=== PATIENT | male | born 1965 | race African-American/Black ===

== ENCOUNTER 2020-09-01 15:06 | Inpatient (IN) | payer MEDICAID ==
[~2020-09-01] VITALS: Ht 170.2 cm; Wt 83.5 kg
--- NOTE | 2020-09-01 15:15 | NUR ---
ABDOMINAL XRAY OBTAINED. PATIENT ROLLED AND BACK/SACRUM/BUTTOCKS ASSESSED FOR PRESSURE INJURY-SKIN INTACT.
[2020-09-01 15:34] LABS: BASOPHILS 0.1 % (0-2); EOSINOPHILS 0.5 % (0-7); HEMATOCRIT 38.9 % (42.0-54.0); IMMATURE GRANULOCYTES 0.3 % (0-5); LYMPHOCYTE ABS# 1.44 10x3/uL (1.32-3.57); LYMPHOCYTES 15.7 % (15-50); MCH 25.5 pg (26.0-34.0); MCHC 30.8 g/dL (31.0-37.0); MCV 82.6 fL (80.0-100.0); MEAN PLATELET VOLUME 9.8 fL (7.4-10.4); MONOCYTES 5.9 % (2-11); NEUTROPHIL ABS# 7.09 10x3/uL (1.78-5.38); NEUTROPHILS 77.5 % (40-80); PLATELET COUNT 312 10x3/uL (130-400); RBC 4.71 10x6/uL (4.20-6.10); RDW 14.6 % (11.5-14.5); WBC 9.2 10x3/uL (4.8-10.8)
[2020-09-01 15:52] LABS: CALC OSMOLALITY 276 mosm/kg (275-300); CALCIUM 9.5 mg/dL (8.5-10.1); CARBON DIOXIDE 32.2 mmol/L (21.0-32.0); CHLORIDE - SERUM 105 mmol/L (98-107); GLUCOSE 121 mg/dL (74-106); POTASSIUM - SERUM 4.2 mmol/L (3.5-5.1); SODIUM 139 mmol/L (136-145); UREA NITROGEN 8 mg/dL (7-18); eGFR NON AFRICAN AMERICAN 82 mL/min (90-120)
[2020-09-01 16:01] LABS: ALBUMIN 3.1 g/dL (3.4-5.0); ALKALINE PHOSPHATASE 53 U/L (30-120); ALT (SGPT) 33 U/L (10-68); AMYLASE - SERUM 79 U/L (25-115); BILIRUBIN - TOTAL 0.31 mg/dL (0.2-1.3); LIPASE 332 U/L (73-393); PROTEIN - SERUM 8.6 g/dL (6.4-8.2); TROPONIN-I < 0.017 ng/mL (0.000-0.060)
--- NOTE | 2020-09-01 16:37 | NUR ---
PEG TUBE TO LOW INTERMITTENT SUCTION. SMALL AMOUNT OF MILKY FLUID RETURNED INITIALLY. TRACH SUCTIONED FOR THICK MUCOUS. STRONG COUGH REFLEX. STAT LOCK TO INDWELLING CATHETER AND CATHETER CLAMPED FOR SPECIMEN COLLECTION.
--- NOTE | 2020-09-01 17:45 | NUR ---
DR ELIZABETH AT BEDSIDE TO MANNUALLY REDUCE LEFT INGUINAL HERNIA. LEFT GROIN SMALLER AND SOFTER FOLLOWING.
[2020-09-01 17:54] LABS: NITRITE POSITIVE (NEGATIVE)
[2020-09-01 17:55] LABS: BILIRUBIN NEGATIVE (NEGATIVE); KETONE NEGATIVE (NEGATIVE); UROBILINOGEN NORMAL mg/dL (< 2)
[2020-09-01 17:56] LABS: BACTERIA MANY HPF (NONE SEEN); WHITE CELLS - URINE 0-5 HPF (0-1)
--- NOTE | 2020-09-01 17:58 | NUR ---
MORPHINE 10MG SLOW IVP ORDERED FOR POST REDUCTION DISCOMFORT.
--- NOTE | 2020-09-01 19:00 | NUR ---
DR. MCQUEEN HERE. REPORT ON CONDITION GIVEN. [facility] CONTACTED TO PROVIDE A COMPLETE MAR FOR RECONCILIATION. CURRENT COPY IS INCOMPLETE FOR DOSAGE FREQUENCIES.
--- NOTE | 2020-09-01 19:33 | NUR ---
REPORT CALLED TO [facility], MED[facility]G [facility].
[2020-09-01 22:20] VITALS: BP 155/104
[2020-09-02 00:39] VITALS: BP 151/108
[2020-09-02 01:05] VITALS: BMI 28.9
--- NOTE | 2020-09-02 02:18 | NUR ---
MD MCQUEEN REQUEST FAITH CHANGE ON PT AND MED RECON. HOSPITAL UNIT CONTACTED AND MED INFO REQUEST NURSE WAS PRN AND WASN'T SURE ABOUT SOME OF THE DOSAGE WILL INFORM NURSE IN THE AM TO VERIFY. MD BREWER CONTACTED VERIFY GOLYTELY TO BE GIVEN IN A PERIOD OF 2-4 HOURS AROUND 250ML TO PT UNTIL BOWEL MOVEMENT OCCURS PT NOT TO BE GIVEN LACTULOSE OR SENNA AT THE MOMENT.
[2020-09-02 04:49] VITALS: BP 147/103
[2020-09-02] MEDS ORDERED: POTASSIUM CHLORIDE PEG (06:07)
[2020-09-02] MEDS ORDERED: CHRONULAC30 ML PEG (06:08)
[2020-09-02] MEDS ORDERED: LANTUS INS100 UNITS/ SC (06:11)
[2020-09-02] MEDS ORDERED: LISINOPRIL20 MG PEG (06:13)
[2020-09-02] MEDS ORDERED: PROVENTIL/2.5 MG/3 M INH (06:19)
[2020-09-02] MEDS ORDERED: NOVOLOG100 UNIT/1 SC (06:21)
[2020-09-02] MEDS ORDERED: CENTRUM LIQUID PEG (06:22)
[2020-09-02] MEDS ORDERED: PROTEINEX PEG (06:23)
[2020-09-02] MEDS ORDERED: LOVENOX40 MG/0.4 SC (06:24)
[2020-09-02] MEDS ORDERED: SENNA LAXATIVE8.6 MG PEG (06:24)
[2020-09-02] MEDS ORDERED: HYDRALAZINE HCL25 MG PEG (06:25)
[2020-09-02] MEDS ORDERED: REGLAN10 MG PEG (06:27)
[2020-09-02] MEDS ORDERED: SCOPOLAMINE1 EACH TRANSDERM (06:28)
[2020-09-02] MEDS ORDERED: PROBIOTIC250 MG PEG (06:28)
[2020-09-02] MEDS ORDERED: BACLOFEN20 M1 PEG (06:29)
[2020-09-02] MEDS ORDERED: AIRDUO RESPI (06:43)
[2020-09-02] MEDS ORDERED: CLONIDINE HCL0.3 MG TRANSDERM (06:54)
[2020-09-02] MEDS ORDERED: GENTAK3.5 GM EACH EYE (06:56)
[2020-09-02] MEDS ORDERED: PEPCID AC20 MG PEG (06:57)
[2020-09-02 06:59] LABS: BASOPHILS 0.1 % (0-2); EOSINOPHILS 1.3 % (0-7); HEMATOCRIT 37.5 % (42.0-54.0); HEMOGLOBIN 11.6 g/dL (13.5-17.5); IMMATURE GRANULOCYTES 0.1 % (0-5); LYMPHOCYTE ABS# 1.57 10x3/uL (1.32-3.57); LYMPHOCYTES 22.1 % (15-50); MCH 25.4 pg (26.0-34.0); MCHC 30.9 g/dL (31.0-37.0); MCV 82.1 fL (80.0-100.0); MEAN PLATELET VOLUME 10.8 fL (7.4-10.4); MONOCYTES 6.9 % (2-11); NEUTROPHIL ABS# 4.92 10x3/uL (1.78-5.38); NEUTROPHILS 69.5 % (40-80); PLATELET COUNT 352 10x3/uL (130-400); RBC 4.57 10x6/uL (4.20-6.10); RDW 14.8 % (11.5-14.5); WBC 7.1 10x3/uL (4.8-10.8)
[2020-09-02] MEDS ORDERED: CORTISPORIN OIN15 GM TOPICAL (07:01)
[2020-09-02] MEDS ORDERED: FUROSEMIDE40 MG PEG (07:02)
[2020-09-02 07:16] LABS: ALKALINE PHOSPHATASE 51 U/L (30-120); ALT (SGPT) 31 U/L (10-68); BILIRUBIN - TOTAL 0.33 mg/dL (0.2-1.3); CALC OSMOLALITY 276 mosm/kg (275-300); CALCIUM 9.2 mg/dL (8.5-10.1); CARBON DIOXIDE 27.7 mmol/L (21.0-32.0); CHLORIDE - SERUM 106 mmol/L (98-107); GLUCOSE 126 mg/dL (74-106); POTASSIUM - SERUM 4.3 mmol/L (3.5-5.1); PROTEIN - SERUM 8.1 g/dL (6.4-8.2); SODIUM 138 mmol/L (136-145); UREA NITROGEN 10 mg/dL (7-18); eGFR NON AFRICAN AMERICAN 82 mL/min (90-120)
--- NOTE | 2020-09-02 07:30 | NUR ---
RESTING QUIETLY IN BED. NON RESPONSIVE TO VERBAL OR TACTILE SENSATION AT THIS TIME. LUNGS HAVE CRACKLES AND WHEEZES THROUGHOUT LUNG RUIZ. NO COUGH NOTED. SKIN IS INTACT WITHOUT REDNESS. PICC TO RIGHT UPPER ARM IS PATENT WTIHOUT REDNESS AT INSERTION SITE. PEG TUBE IS PATENT. TRACH COLLAR IN PLACE. FAITH PATENT WITH VERY LIGHT TEA COLORED URINE. NO NEEDS NOTED.
[2020-09-02 08:09] VITALS: BP 140/100
[2020-09-02 09:10] VITALS: Ht 170.2 cm; Wt 83.5 kg
--- NOTE | 2020-09-02 10:00 | NUR ---
SUCTIONED AT THIS TIME. SOME THICK GRAYISH SPUTUM RETURNED. REPOSITIONED IN BED FOR COMFORT.
--- NOTE | 2020-09-02 11:00 | NUR ---
250cc GOLYTLY GIVEN VIA PEG. RESPIRATORY CALLED TO ROOM. DEEP SUCTIONED VIA RT. THICH GREENISH SPUTUM RETURNED. REPOSITIONED IN BED FOR COMFORT.
[2020-09-02 12:04] VITALS: BP 149/115
--- NOTE | 2020-09-02 13:00 | NUR ---
ABDOMEN IS EXTREMELY TIGHT, LIKE A BASKETBALL, GOLYTLY HELD AT THIS TIME. DR. BREWER NOTIFIED OF SAME. WILL MONITOR. PASSING GAS AT THIS TIME.
[2020-09-02 17:29] VITALS: BP 190/115
--- NOTE | 2020-09-02 18:03 | NUR ---
GIVEN 10MG APRESOLINE SLOW IVP FOR BP 180/115. WILL MONITOR.
--- NOTE | 2020-09-02 19:21 | NUR ---
CLEANED PATIENT UP WITH PERSONNEL REPRESENTATIVE AFTER PATIENT VOMITED. COMPLETE LINEN CHANGE. GUARD AT BEDSIDE. BED IN LOWEST POSITION AND CALL LIGHT IN REACH. ENCOURAGED PATIENT AND GUARD TO CALL WITH NEEDS.
--- NOTE | 2020-09-02 19:22 | NUR ---
HAD EMESIS AT THIS TIME. SKIN CARE PER STAFF. NO CHANGES NOTED.
--- NOTE | 2020-09-02 20:09 | NUR ---
ADMINISTERED MEDS PER ORDERS. PATIENT MARIA DOLORES WELL. ENCOURAGED TO CALL WITH NEEDS.
[2020-09-02 20:33] VITALS: BP 144/90
[2020-09-03 00:46] VITALS: BP 165/100
[2020-09-03 05:08] VITALS: BP 135/81
--- NOTE | 2020-09-03 05:15 | NUR ---
PAGED DR. MCQUEEN IN REGARDS TO 102.6 TEMP
[2020-09-03 06:40] LABS: BASOPHILS 0.1 % (0-2); EOSINOPHILS 0.2 % (0-7); HEMATOCRIT 34.1 % (42.0-54.0); HEMOGLOBIN 10.7 g/dL (13.5-17.5); IMMATURE GRANULOCYTES 0.3 % (0-5); LYMPHOCYTE ABS# 1.66 10x3/uL (1.32-3.57); LYMPHOCYTES 15.6 % (15-50); MCH 25.3 pg (26.0-34.0); MCHC 31.4 g/dL (31.0-37.0); MCV 80.6 fL (80.0-100.0); MEAN PLATELET VOLUME 9.4 fL (7.4-10.4); MONOCYTES 5.3 % (2-11); NEUTROPHIL ABS# 8.38 10x3/uL (1.78-5.38); NEUTROPHILS 78.5 % (40-80); RBC 4.23 10x6/uL (4.20-6.10); RDW 14.6 % (11.5-14.5)
[2020-09-03 06:42] LABS: PLATELET COUNT 257 10x3/uL (130-400); WBC 10.7 10x3/uL (4.8-10.8)
[2020-09-03 07:04] LABS: ANION GAP 11.1 mmol/L (8-16); CALCIUM 8.7 mg/dL (8.5-10.1); CARBON DIOXIDE 25.8 mmol/L (21.0-32.0); CREATININE - SERUM 1.1 mg/dL (0.6-1.3); POTASSIUM - SERUM 3.9 mmol/L (3.5-5.1)
--- NOTE | 2020-09-03 07:49 | NUR ---
PATIENT IS NON VERBAL. COUGHING UP SOME GRAYISH SPUTUM. SKIN CARE PER STAFF. LUNGS ARE DIMINISHED THROUGHOUT. SKIN IS INTACT WITHOUT REDNESS EXCEPT SMALL REDDENED AREA ON COCCYX. WILL MONITOR. MIDLINE TO RIGHT UPPER ARM IS PATENT WITHOUT REDNESS AT INSERTION SITE. FAITH PATENT WITH TEA COLORED URINE. NO NEEDS NOTED.
--- NOTE | 2020-09-03 09:00 | NUR ---
DR. MCQUEEN NOTIFIED OF ELEVATED TEMP. NEW ORDERS RECEIVED.
[2020-09-03 09:04] VITALS: BP 135/74
--- NOTE | 2020-09-03 09:30 | NUR ---
SUCTIONED AT THIS TIME. LARGE AMOUNT OF GREYISH SPUTUM AROUND TRACH. SKIN CARE PER STAFF.
--- NOTE | 2020-09-03 10:30 | NUR ---
TYLENOL SUPPOSITORY PLACE. SMALL AMOUNT OF STOO, LOOSE WATERY, SKIN CARE PER STAFF.
--- NOTE | 2020-09-03 12:00 | NUR ---
TEMP DOWN SLIGHTLY. WILL CONTINUE TO MONITOR.
[2020-09-03 12:06] VITALS: BP 120/81
--- NOTE | 2020-09-03 15:00 | NUR ---
SUCTIONED PER STAFF. INCONTINENT OF SMALL AMOUNT OF LOOSE WATERY STOOL. SKIN CARE PER STAFF.
[2020-09-03 16:48] VITALS: BP 142/90
--- NOTE | 2020-09-03 18:29 | NUR ---
NO CHANGES AT THIS TIME. NO NEEDS NOTED. HOB UP 45 DEGREES.
--- NOTE | 2020-09-03 19:31 | NUR ---
PATIENT RESTING IN BED WITH NO S/S OF DISTRESS. GUARD AT BEDSIDE AND DENIES NEEDS AT THIS TIME. BED IN LOWEST POSITION AND CALL LIGHT IN REACH.
--- NOTE | 2020-09-03 20:15 | NUR ---
ADMINISTERED MEDS PER ORDERS. PATIENT MARIA DOLORES WELL. ENCOURAGED TO CALL WITH NEEDS.
[2020-09-03 20:44] VITALS: BP 152/97
[2020-09-04] VITALS (7 sets, daily range): BP systolic 127–179; BP diastolic 47–105
--- NOTE | 2020-09-04 12:16 | NUR ---
Nutrition follow-up: Pt continues NPO due to SBO. PEG tube to suction with little to no output Labs reviewed Wt: 184# Recommend starting ProcalAmine PPN @ 100 ml/hr if enteral feeds unable to begin within [address]N follow-up: 09/06/20
--- NOTE | 2020-09-04 18:02 | NUR ---
LYING IN BED WITH EYES OPEN. NO S/S OF PAIN OR DISCOMFORT. GUARD AT BEDSIDE. DEXTROSE GIVEN PER HYPOGLYCEMIC PROTOCOL NADN. WILL CONTINUE TO MONITOR.
[2020-09-05] VITALS: BP 139/86; BP 168/100
[2020-09-05 04:00] VITALS: BP 182/94
[2020-09-05 06:13] LABS: BASOPHILS 0.4 % (0-2); EOSINOPHILS 5.6 % (0-7); HEMATOCRIT 34.9 % (42.0-54.0); HEMOGLOBIN 10.9 g/dL (13.5-17.5); IMMATURE GRANULOCYTES 0.2 % (0-5); LYMPHOCYTE ABS# 1.46 10x3/uL (1.32-3.57); LYMPHOCYTES 26.3 % (15-50); MCH 25.1 pg (26.0-34.0); MCHC 31.2 g/dL (31.0-37.0); MCV 80.4 fL (80.0-100.0); MONOCYTES 12.2 % (2-11); NEUTROPHIL ABS# 3.08 10x3/uL (1.78-5.38); NEUTROPHILS 55.3 % (40-80); PLATELET COUNT 283 10x3/uL (130-400); RBC 4.34 10x6/uL (4.20-6.10); RDW 14.3 % (11.5-14.5)
[2020-09-05 06:16] LABS: WBC 5.6 10x3/uL (4.8-10.8)
[2020-09-05 06:21] LABS: CALCIUM 8.8 mg/dL (8.5-10.1); CARBON DIOXIDE 23.6 mmol/L (21.0-32.0); CHLORIDE - SERUM 102 mmol/L (98-107); GLUCOSE 86 mg/dL (74-106); POTASSIUM - SERUM 4.2 mmol/L (3.5-5.1); SODIUM 137 mmol/L (136-145)
[2020-09-05 06:23] LABS: CALC OSMOLALITY 271 mosm/kg (275-300); CREATININE - SERUM 0.8 mg/dL (0.6-1.3); UREA NITROGEN 9 mg/dL (7-18); eGFR NON AFRICAN AMERICAN > 90 mL/min (90-120)
[2020-09-05 09:34] VITALS: BP 165/94
--- NOTE | 2020-09-05 09:36 | MORECARE ---
CASE MANAGEMENT DISCHARGE SUMMARY PATIENT: JAIME MIGUEL UNIT: [id number] ADM DATE: 09/01/20 AGE: 55 : 65 SEX: M ROOM/BED: D.2208 AUTHOR: SHAHID,DOC PHYSICIAN: REFERRING PHYSICIAN: SHIVANI MCQUEEN MD DATE OF SERVICE: 09/05/20 Case Management Discharge Planning Summary COMMENTS ENTERED DATE: 09/05/20 9:29 CT COMMENT TYPE: Discharge Planning REVIEWER: Savannah Burroughs Patient is an [facility] prisoner with a guard at the bedside. At DC patient will return to the [facility] facility and the guards will set up transport. CM will assist as needed. DCP REVIEW SUMMARY ANTICIPATED D/C DATE: EXPECTED LOS : CASE STATUS: DCP Initiated INITIAL REVIEW: 09/01/2020 INITIAL REVIEWER: Savannah Burroughs FINAL DISCHARGE DISPOSITION: : FINAL REVIEWER: FINAL REVIEW DATE: DCP [facility] Questions & Answers QUESTION: ANSWER : PATIENT: JAIME MIGUEL ENCOUNTER: [id number] MEDICAL RECORD#: [id number] ADMISSION DATE: 09/01/2020 DISCHARGE DATE: ATTENDING MD: SHIVANI ISRAEL : AGE: 55 MARITAL STATUS: S DC PLAN ID: [id number] FACILITY: [facility] PRINTED ON: 09/05/20 9:36 CT All edits/amendments must be made on the electronic document DICTATION DATE: 09/05/20934 FLOORMAN: JOSE 09/05/20934 RPT#: [id number] DC DATE: STATUS: ADM IN [facility] [address] [place] [address] END OF REPORT
[2020-09-05 13:23] VITALS: BP 166/97
[2020-09-05 18:55] VITALS: BP 154/87
[2020-09-05 20:00] VITALS: BP 146/86
--- NOTE | 2020-09-06 02:09 | NUR ---
I have reviewed this patient and I concur with the Shift Assessment completed by the Licensed Practical Nurse today this shift.
[2020-09-06 04:00] VITALS: BP 155/92
[2020-09-06 08:49] VITALS: BP 156/99
[2020-09-06 09:02] LABS: BASOPHILS 0.2 % (0-2); EOSINOPHILS 2.9 % (0-7); HEMOGLOBIN 10.7 g/dL (13.5-17.5); IMMATURE GRANULOCYTES 0.2 % (0-5); LYMPHOCYTE ABS# 1.69 10x3/uL (1.32-3.57); LYMPHOCYTES 27.3 % (15-50); MCH 25.3 pg (26.0-34.0); MCHC 31.5 g/dL (31.0-37.0); MCV 80.4 fL (80.0-100.0); MEAN PLATELET VOLUME 10.4 fL (7.4-10.4); MONOCYTES 10.2 % (2-11); NEUTROPHIL ABS# 3.67 10x3/uL (1.78-5.38); NEUTROPHILS 59.2 % (40-80); PLATELET COUNT 332 10x3/uL (130-400); RBC 4.23 10x6/uL (4.20-6.10); RDW 14.3 % (11.5-14.5); WBC 6.2 10x3/uL (4.8-10.8)
[2020-09-06 09:03] LABS: CALC OSMOLALITY 272 mosm/kg (275-300); CALCIUM 8.6 mg/dL (8.5-10.1); CARBON DIOXIDE 24.9 mmol/L (21.0-32.0); CHLORIDE - SERUM 103 mmol/L (98-107); CREATININE - SERUM 0.9 mg/dL (0.6-1.3); GLUCOSE 88 mg/dL (74-106); PHOSPHOROUS 2.8 mg/dL (2.5-4.9); POTASSIUM - SERUM 4.1 mmol/L (3.5-5.1); SODIUM 138 mmol/L (136-145); UREA NITROGEN 7 mg/dL (7-18); eGFR NON AFRICAN AMERICAN > 90 mL/min (90-120)
[2020-09-06 12:19] VITALS: BP 162/100
--- NOTE | 2020-09-06 13:05 | NUR ---
Nutrition follow-up: Pt continues NPO Trach, PEG tube; functional quad Labs reviewed +BM Wt: 184# Pt continues to not meet est nutritional needs. Recommend starting PEG tube feedings if medically feasible; if not feasible, recommend starting for short-term nutrition support, ProcalAmine PPN @ 125 ml/hr RDN follow-up: 09/08/20
--- NOTE | 2020-09-06 18:31 | NUR ---
PATIENT WITHOUT CHANGE FROM INITIAL SHIFT ASSESSMENT. GUARD REMAINS AT BEDSIDE.WITHOUT NEEDS.CONT PLAN OF CARE
[2020-09-06 18:40] VITALS: BP 177/98
[2020-09-06 20:00] VITALS: BP 149/90
[2020-09-07] VITALS: BP 165/91
--- NOTE | 2020-09-07 00:58 | NUR ---
I have reviewed this patient and I concur with the Shift Assessment completed by the Licensed Practical Nurse today this shift.
[2020-09-07 04:00] VITALS: BP 166/96
[2020-09-07 06:38] LABS: BASOPHILS 0.4 % (0-2); EOSINOPHILS 3.8 % (0-7); HEMATOCRIT 34.4 % (42.0-54.0); HEMOGLOBIN 10.9 g/dL (13.5-17.5); IMMATURE GRANULOCYTES 0.4 % (0-5); LYMPHOCYTE ABS# 1.31 10x3/uL (1.32-3.57); LYMPHOCYTES 23.5 % (15-50); MCH 25.4 pg (26.0-34.0); MCHC 31.7 g/dL (31.0-37.0); MCV 80.2 fL (80.0-100.0); MEAN PLATELET VOLUME 10.3 fL (7.4-10.4); MONOCYTES 11.5 % (2-11); NEUTROPHIL ABS# 3.38 10x3/uL (1.78-5.38); NEUTROPHILS 60.4 % (40-80); PLATELET COUNT 326 10x3/uL (130-400); RBC 4.29 10x6/uL (4.20-6.10); RDW 14.3 % (11.5-14.5); WBC 5.6 10x3/uL (4.8-10.8)
[2020-09-07 06:48] LABS: CALC OSMOLALITY 274 mosm/kg (275-300); CALCIUM 8.8 mg/dL (8.5-10.1); CARBON DIOXIDE 24.3 mmol/L (21.0-32.0); CHLORIDE - SERUM 103 mmol/L (98-107); CREATININE - SERUM 0.8 mg/dL (0.6-1.3); GLUCOSE 83 mg/dL (74-106); POTASSIUM - SERUM 4.3 mmol/L (3.5-5.1); SODIUM 140 mmol/L (136-145); eGFR NON AFRICAN AMERICAN > 90 mL/min (90-120)
[2020-09-07 06:51] LABS: UREA NITROGEN 5 mg/dL (7-18)
--- NOTE | 2020-09-07 08:00 | NUR ---
ASSESSMENT PER FLOW SHEET. PATIENT IS WITHOUT DISTRESS. ISOLATION MAINTAINED. GUARD AT BEDSIDE.CALL LIGHT IN REACH
[2020-09-07 08:42] VITALS: BP 168/96
[2020-09-07 13:25] VITALS: BP 171/104
[2020-09-07 17:41] VITALS: BP 170/110
[2020-09-07 20:00] VITALS: BP 147/102
[2020-09-08] VITALS: BP 163/104
[2020-09-08 04:00] VITALS: BP 158/97
--- NOTE | 2020-09-08 04:05 | NUR ---
MD MCQUEEN CHECKING ON PT, HE WAS CONSULTED TO GET IV NUTRITION SINCE PT NPO AND PEG CLAMPED. PROCALAMINE ORDER. WILL MONITOR PLAN OF CARE.
[2020-09-08 05:40] LABS: BASOPHILS 0 % (0-2); EOSINOPHILS 4.6 % (0-7); HEMATOCRIT 34.6 % (42.0-54.0); HEMOGLOBIN 10.9 g/dL (13.5-17.5); IMMATURE GRANULOCYTES 0.2 % (0-5); LYMPHOCYTE ABS# 1.47 10x3/uL (1.32-3.57); LYMPHOCYTES 25.1 % (15-50); MCH 25.2 pg (26.0-34.0); MCHC 31.5 g/dL (31.0-37.0); MCV 80.1 fL (80.0-100.0); MEAN PLATELET VOLUME 10.1 fL (7.4-10.4); MONOCYTES 11.6 % (2-11); NEUTROPHIL ABS# 3.43 10x3/uL (1.78-5.38); NEUTROPHILS 58.5 % (40-80); PLATELET COUNT 338 10x3/uL (130-400); RBC 4.32 10x6/uL (4.20-6.10); RDW 14.3 % (11.5-14.5); WBC 5.9 10x3/uL (4.8-10.8)
[2020-09-08 05:58] LABS: CALC OSMOLALITY 272 mosm/kg (275-300); CALCIUM 8.8 mg/dL (8.5-10.1); CARBON DIOXIDE 25.2 mmol/L (21.0-32.0); CHLORIDE - SERUM 103 mmol/L (98-107); CREATININE - SERUM 0.8 mg/dL (0.6-1.3); GLUCOSE 87 mg/dL (74-106); POTASSIUM - SERUM 3.9 mmol/L (3.5-5.1); SODIUM 138 mmol/L (136-145); eGFR NON AFRICAN AMERICAN > 90 mL/min (90-120)
[2020-09-08 06:09] LABS: UREA NITROGEN 7 mg/dL (7-18)
[2020-09-08 08:46] VITALS: BP 169/106
[2020-09-08 12:00] VITALS: BP 185/103
--- NOTE | 2020-09-08 13:55 | NUR ---
Nutrition Follow-up: Patient on airborn precautions isolation. Trach, PEG, functional quad Diet: NPO TF order: none at this time PPN: procalamine @ 75mL/hr = 441kcal and 52gms protein Last BM: 09/06/20 Wt: 184# (09/02/20) Meds noted: NS@75, probiotics, abx, reglan, SSI Labs reviewed Skin: stage I PU to coccyx Patient continues to not meet estimated nutrition needs. Recommend initiate TF as soon as medically feasible. If unable to initial TF at this time, recommend increase ProcalAmine PPN to 125mL/hr. RD will follow-up 09/11/20. Recommend
[2020-09-08 17:11] VITALS: BP 124/90
--- NOTE | 2020-09-08 18:23 | NUR ---
I have reviewed this patient and I concur with the Shift Assessment completed by the Licensed Practical Nurse today this shift.
[2020-09-08 21:13] VITALS: BP 180/102
[2020-09-09 00:38] VITALS: BP 158/101
--- NOTE | 2020-09-09 02:06 | NUR ---
PT MOVE TO LEFT SIDE PILLOW PLACE UNDER. YELLOW EYE CRUSTED CLEAN ON RIGHT EYE. WILL CONT WITH PLAN OF CARE.
--- NOTE | 2020-09-09 03:00 | NUR ---
I have reviewed this patient and I concur with the Shift Assessment completed by the Licensed Practical Nurse today this shift.
[2020-09-09 05:24] VITALS: BP 162/101
[2020-09-09 07:18] LABS: BASOPHILS 0.1 % (0-2); EOSINOPHILS 3.6 % (0-7); HEMATOCRIT 37.4 % (42.0-54.0); HEMOGLOBIN 11.7 g/dL (13.5-17.5); IMMATURE GRANULOCYTES 0.4 % (0-5); LYMPHOCYTE ABS# 2.06 10x3/uL (1.32-3.57); LYMPHOCYTES 27.5 % (15-50); MCH 24.7 pg (26.0-34.0); MCHC 31.3 g/dL (31.0-37.0); MCV 79.1 fL (80.0-100.0); MEAN PLATELET VOLUME 10.2 fL (7.4-10.4); MONOCYTES 12.8 % (2-11); NEUTROPHIL ABS# 4.15 10x3/uL (1.78-5.38); NEUTROPHILS 55.6 % (40-80); PLATELET COUNT 368 10x3/uL (130-400); RBC 4.73 10x6/uL (4.20-6.10); RDW 14.4 % (11.5-14.5)
[2020-09-09 07:20] LABS: WBC 7.5 10x3/uL (4.8-10.8)
[2020-09-09 07:28] LABS: CALC OSMOLALITY 273 mosm/kg (275-300); CARBON DIOXIDE 25.6 mmol/L (21.0-32.0); CHLORIDE - SERUM 103 mmol/L (98-107); CREATININE - SERUM 0.7 mg/dL (0.6-1.3); GLUCOSE 97 mg/dL (74-106); POTASSIUM - SERUM 3.7 mmol/L (3.5-5.1); SODIUM 138 mmol/L (136-145); UREA NITROGEN 7 mg/dL (7-18); eGFR NON AFRICAN AMERICAN > 90 mL/min (90-120)
[2020-09-09 09:29] VITALS: BP 156/96
--- NOTE | 2020-09-09 09:44 | NUR ---
RESTING IN BED, GUARD IN ROOM, NO DISTRESS NOTED, IV INFUSING, TURN PER STAFF, NPO
[2020-09-09 14:22] VITALS: BP 147/92
[2020-09-09 19:04] VITALS: BP 148/94
--- NOTE | 2020-09-09 20:30 | NUR ---
RESTING QUEITLY. NO DISTRESS NOTED. 02 @ 6L PER TRACH COLLAR ON. RESP UNALBOREO.IV TO KATARINA PICC INTACT WITHOUT REDNESS OR EDEMA NOTED.TURNED AND POSITIONED FOR COMFORT.CL IN REACH.
[2020-09-09 22:27] VITALS: BP 143/99
--- NOTE | 2020-09-10 02:08 | NUR ---
I have reviewed this patient and I concur with the Shift Assessment completed by the Licensed Practical Nurse today this shift.
[2020-09-10 06:42] VITALS: BP 120/56
[2020-09-10 09:24] LABS: CREATININE - SERUM 0.8 mg/dL (0.6-1.3)
[2020-09-10 09:47] VITALS: BP 173/106
--- NOTE | 2020-09-10 10:05 | NUR ---
RESTING IN BED, TURNED PER STAFF, NO BM THIS AM, REMAINS IN ISOLATION, IV INFUSING PER PICC, CALL PLACED TO [facility] TO TALK WITH ISAURO FOR CONSENTS, AWAITING CALL BACK, GUARD AT BEDSIDE
--- NOTE | 2020-09-10 11:51 | NUR ---
SPOKE WITH ISAURO AT [facility], HE WILL CONTACT THE FAMILY TO CALL ME FOR THE CONSENT
--- NOTE | 2020-09-10 13:50 | NUR ---
SPOKE WITH DAUGHTER FRANCISCA WOODARD WHO GAVE PERMISSION FOR PT SURGERY, VERIFIED BY 2ND NURSE
[2020-09-10 13:51] VITALS: BP 181/101
[2020-09-10 18:20] VITALS: BP 178/103
[2020-09-10 22:06] VITALS: BP 153/98
--- NOTE | 2020-09-10 23:14 | NUR ---
TURNED AN POSITIONED FOR COMFORT. 02@ 6L PER TRACH COLLAR.NO DISTRESS NOTED.CL IN REACH
[2020-09-11 00:13] VITALS: BP 160/95
--- NOTE | 2020-09-11 04:56 | NUR ---
I have reviewed this patient and I concur with the Shift Assessment completed by the Licensed Practical Nurse today this shift.
--- NOTE | 2020-09-11 07:15 | NUR ---
REC'D IN BED WITH EYES CLOSED EASILY TO AROUSED WHEN NAME IS CALLED. RESP EVEN AND UNLABORED WITH NO DISTRESS NOTED. UNABLE TO VOICE NEEDS AND WANTS. NO FACIAL GRIMACES OR MOANING NOTED FROM PAIN. ASSESSMENT COMPLETED. C/TEODORA REACH AT BEDSIDE.
[2020-09-11 08:13] VITALS: BP 154/90
--- NOTE | 2020-09-11 08:55 | NUR ---
PATIENT IS WITHOUT DISTRESS. ISOLATION MAINTAINED
[2020-09-11 12:44] VITALS: BP 175/103
--- NOTE | 2020-09-11 13:57 | NUR ---
Nutrition Re-Assessment: Admitted with dilated colon and small bowel from prolonged supine position. Plans for colostomy today per Sx notes. TF order: none at this time. PPN: ProcalAmine @ 75mL/hr = 441kcal and 52gms protein (this is only meeting ~26% of estimated energy needs and ~74% of estimated protein needs). Last BM: 09/06/20 (per nursing flowsheet) Wt: 184# (09/02/20) Meds noted: probiotics, abx, reglan, NS@75 Labs reviewed Estimated nutrition needs and nutrition diagnosis remain unchanged from initial nutrition assessment. Patient is not currently progressing towards nutrition goals at this time. Recommedations/Interventions: -Recommend resume TF regimen from usp as soon as medically feasible. OR Glucerna 1.5 @ 50mL/hr to meet estimated energy and protein needs. -Recommend increase ProcalAmine to 125mL/hr to better meet estimated energy and protein needs. -RD will follow-up 09/13/20.
--- NOTE | 2020-09-11 16:04 | NUR ---
PT SHAKES AND NODS HEAD WHEN IN PAIN. DENIES PAIN AT THIS TIME.
[2020-09-11 16:26] VITALS: BP 143/100
[2020-09-11 17:06] VITALS: BP 143/100
[2020-09-11 19:30] VITALS: BP 136/94
[2020-09-12] VITALS: BP 104/86
[2020-09-12 04:00] VITALS: BP 157/107
--- NOTE | 2020-09-12 07:18 | NUR ---
PATIENT IS WITHOUT SIGNS OF DISTRESS. RESP TX IN PROGRESS.GUARD AT BEDSIDE.
[2020-09-12 08:30] VITALS: BP 183/109
--- NOTE | 2020-09-12 11:35 | MORECARE ---
CASE MANAGEMENT DISCHARGE SUMMARY PATIENT: JAIME MIGUEL UNIT: [id number] ADM DATE: 09/01/20 AGE: 55 : 65 SEX: M ROOM/BED: D.2208 AUTHOR: SHAHID,DOC PHYSICIAN: REFERRING PHYSICIAN: SHIVANI MCQUEEN MD DATE OF SERVICE: 09/12/20 Case Management Discharge Planning Summary COMMENTS ENTERED DATE: 09/12/20 11:30 CT COMMENT TYPE: Discharge Planning REVIEWER: Savannah Burroughs PATIENT WILL BE DISCHARGING BACK TO [facility] THE GUARDS HAVE SET UP TRANSPORTATION VIA EMS AND THEY WILL BE HERE AT 1400 I HAVE FAXED ALL CLINICAL TO [facility] ENTERED DATE: 09/05/20 9:29 CT COMMENT TYPE: Discharge Planning REVIEWER: Savannah Burroughs Patient is an [facility] prisoner with a guard at the bedside. At DC patient will return to the [facility] facility and the guards will set up transport. CM will assist as needed. DCP REVIEW SUMMARY ANTICIPATED D/C DATE: EXPECTED LOS : CASE STATUS: DCP Initiated INITIAL REVIEW: 09/01/2020 INITIAL REVIEWER: Savannah Burroughs FINAL DISCHARGE DISPOSITION: : FINAL REVIEWER: FINAL REVIEW DATE: DCP [facility] Questions & Answers QUESTION: ANSWER : PATIENT: JAIME MIGUEL ENCOUNTER: [id number] MEDICAL RECORD#: [id number] ADMISSION DATE: 09/01/2020 DISCHARGE DATE: ATTENDING MD: SHIVANI ISRAEL : AGE: 55 MARITAL STATUS: S DC PLAN ID: [id number] FACILITY: [facility] PRINTED ON: 09/12/20 11:35 CT All edits/amendments must be made on the electronic document DICTATION DATE: 09/12/20 113 JOB MOLDER: JOSE 09/12/20 1135 RPT#: [id number] DC DATE: STATUS: ADM IN [facility] [address] [place] [address] END OF REPORT
[2020-09-12 14:00] VITALS: BP 162/98
--- NOTE | 2020-09-12 15:18 | NUR ---
DC BACK TO [facility] AT THIS TIME IN STABLE CONDITION UPON DEPARTURE VIA AMBULANCE. PIC LINE AND FAITH INTACT. REPPORT WAS CALLED AND GIVEN TO CHARGE NURSE PRIOR TO DEPARTURE.
--- NOTE | 2020-09-12 15:25 | MORECARE ---
CASE MANAGEMENT DISCHARGE SUMMARY PATIENT: JAIME MIGUEL UNIT: [id number] ADM DATE: 09/01/20 AGE: 55 : 65 SEX: M ROOM/BED: D.2208 AUTHOR: SHAHID,DOC PHYSICIAN: REFERRING PHYSICIAN: SHIVANI MCQUEEN MD DATE OF SERVICE: 09/12/20 Case Management Discharge Planning Summary COMMENTS ENTERED DATE: 09/12/20 11:30 CT COMMENT TYPE: Discharge Planning REVIEWER: Savannah Burroughs PATIENT WILL BE DISCHARGING BACK TO [facility] THE GUARDS HAVE SET UP TRANSPORTATION VIA EMS AND THEY WILL BE HERE AT 1400 I HAVE FAXED ALL CLINICAL TO [facility] ENTERED DATE: 09/05/20 9:29 CT COMMENT TYPE: Discharge Planning REVIEWER: Savannah Burroughs Patient is an [facility] prisoner with a guard at the bedside. At DC patient will return to the [facility] facility and the guards will set up transport. CM will assist as needed. DCP REVIEW SUMMARY ANTICIPATED D/C DATE: EXPECTED LOS : CASE STATUS: DCP Initiated INITIAL REVIEW: 09/01/2020 INITIAL REVIEWER: Savannah Burroughs FINAL DISCHARGE DISPOSITION: : FINAL REVIEWER: FINAL REVIEW DATE: DCP [facility] Questions & Answers QUESTION: ANSWER : PATIENT: JAIME MIGUEL ENCOUNTER: [id number] MEDICAL RECORD#: [id number] ADMISSION DATE: 09/01/2020 DISCHARGE DATE: 09/12/2020 ATTENDING MD: SHIVANI ISRAEL : AGE: 55 MARITAL STATUS: S DC PLAN ID: [id number] FACILITY: [facility] PRINTED ON: 09/12/20 15:25 CT All edits/amendments must be made on the electronic document DICTATION DATE: 09/12/20 152 PASSENGER TIRE BUILDER: JOSE 09/12/20 1525 RPT#: [id number] DC DATE:09/12/20 STATUS: DIS IN [facility] [address] [place] [address] END OF REPORT
--- NOTE | 2020-09-13 10:35 | MORECARE ---
CASE MANAGEMENT DISCHARGE SUMMARY PATIENT: JAIME MIGUEL UNIT: [id number] ADM DATE: 09/01/20 AGE: 55 : 65 SEX: M ROOM/BED: D.2208 AUTHOR: SHAHID,DOC PHYSICIAN: REFERRING PHYSICIAN: SHIVANI MCQUEEN MD DATE OF SERVICE: 09/13/20 Case Management Discharge Planning Summary COMMENTS ENTERED DATE: 09/12/20 11:30 CT COMMENT TYPE: Discharge Planning REVIEWER: Savannah Burroughs PATIENT WILL BE DISCHARGING BACK TO [facility] THE GUARDS HAVE SET UP TRANSPORTATION VIA EMS AND THEY WILL BE HERE AT 1400 I HAVE FAXED ALL CLINICAL TO [facility] ENTERED DATE: 09/05/20 9:29 CT COMMENT TYPE: Discharge Planning REVIEWER: Savannah Burroughs Patient is an [facility] prisoner with a guard at the bedside. At DC patient will return to the [facility] facility and the guards will set up transport. CM will assist as needed. DCP REVIEW SUMMARY ANTICIPATED D/C DATE: EXPECTED LOS : CASE STATUS: DCP Initiated INITIAL REVIEW: 09/01/2020 INITIAL REVIEWER: Savannah Burroughs FINAL DISCHARGE DISPOSITION: : FINAL REVIEWER: FINAL REVIEW DATE: DCP [facility] Questions & Answers QUESTION: ANSWER : PATIENT: JAIME MIGUEL ENCOUNTER: [id number] MEDICAL RECORD#: [id number] ADMISSION DATE: 09/01/2020 DISCHARGE DATE: 09/12/2020 ATTENDING MD: SHIVANI ISRAEL : AGE: 55 MARITAL STATUS: S DC PLAN ID: [id number] FACILITY: [facility] PRINTED ON: 09/13/20 10:35 CT All edits/amendments must be made on the electronic document DICTATION DATE: 09/13/20 103 LOGISTICS CLERK: JOSE 09/13/20 103 RPT#: [id number] DC DATE:09/12/20 STATUS: DIS IN [facility] [address] [place] [address] END OF REPORT
== END 2020-09-12 15:20 | DRG 329 ==
LOC: D.ER 15:06 → D.MS 17:05
PROVIDERS: Family Medicine; Internal Medicine Pulmonary Disease; Surgery; ADMIT Family Medicine; ATTEND Family Medicine
PROC: 0D1N0Z4 Bypass Sigmoid Colon to Cutaneous, Open Approach (ICD-10-PCS; principal; 2020-09-11 15:00)
DX: K56.609 Unspecified intestinal obstruction, unspecified as to partial versus complete obstruction (principal); G82.51 Quadriplegia, C1-C4 complete; G83.5 Locked-in state; J69.0 Pneumonitis due to inhalation of food and vomit; N39.0 Urinary tract infection, site not specified; Z93.0 Tracheostomy status; D64.9 Anemia, unspecified; K40.90 Unilateral inguinal hernia, without obstruction or gangrene, not specified as recurrent; Z66 Do not resuscitate; J40 Bronchitis, not specified as acute or chronic; K59.81 Ogilvie syndrome